=== PATIENT | female | born 1980 | race Caucasian/White ===

== ENCOUNTER 2020-10-29 09:10 | Emergency (ER) | payer OTHER ==
--- OUTSIDE RECORDS SUMMARY | 2020-10-29 09:13 | XMS REPORT | Continuity of Care Document ---
:1980 Author Organization [facility] t Address [address] [place] [place] [address] Care Team Providers Name Role Phone Daniel Salazar DO Attending Clinician David Ramos MD Attending Clinician Problems This patient has no known problems. Allergies, Adverse Reactions, Alerts This patient has no known allergies or adverse reactions. Medications This patient has no known medications. Procedures This patient has no known procedures. Encounters Start End Encounter Admission Attending Care Care Encounter Source Date/Time Date/Time Type Type Clinicians Facility Department ID 2020-08-10 2020-08-10 Patient Martin NHJAMIE [id number] 00:00:00 00:00:00 Outreach [facility] [id number] Daniel [facility] [id number] PAVILLION [id number] [id number] 2019-08-19 2020-02-22 Telemedici Belen Ramos [facility] [id number] 08:00:12 10:23:05 ne Visit David Welsh [id number] [place] [id number] [facility] [phone] nal [address] Building Results This patient has no known results.
[2020-10-29] MEDS ORDERED: MORPHINE 4 MG/ML SYR ONE (09:58)
[2020-10-29 09:59] LABS: Absolute Lymphocytes (CBC) 1.3 K/uL (0.7-4.9); Basophils % 0.8 % (0-1.3); Hematocrit 39.1 % (36.0-45.0); Lymphocytes % 20.9 % (15.3-44.8); MPV 8.4 fL (7.6-11.3); RBC Red Blood Cell Count 4.81 M/uL (3.86-4.86)
[2020-10-29] MEDS ORDERED: ONDANSETRON 4 MG/2 ML VIAL ONE (09:59)
[2020-10-29 10:12] LABS: BUN Blood Urea Nitrogen 16 mg/dL (7-18); Bicarbonate 26 mmol/L (21-32); Glucose Level 180 mg/dL (74-106); Potassium 3.6 mmol/L (3.5-5.1); Sodium Level 137 mmol/L (136-145)
--- NOTE | 2020-10-29 11:02 | RAD REPORT ---
EXAM DESCRIPTION: CT - Head C Spine Chencho Gottlieb - 10/29/2020 10:39 am CLINICAL HISTORY: Head and neck injury with chest and abdominal pain status post fall. Head and neck pain . TECHNIQUE: Computed axial tomography of the head and cervical spine was obtained Computed axial tomography of the chest, abdomen and pelvis was obtained. 100 cc Isovue-300 was given intravenously coronal and sagittal reconstruction was performed. All CT scans are performed using dose optimization technique as appropriate and may include automated exposure control or mA/KV adjustment according to patient size. COMPARISON: None FINDINGS: An intracranial bleed is not seen. The ventricles are normal in caliber. An extra-axial fl uid collection is not noted. Fluid within the sinuses/mastoids is not seen. A cervical fracture is not seen. No dislocation is seen. Loss of the normal lordosis of the cervical spine. Prominent osteophytes C5-6 impinge upon the spinal cord. A mediastinal hematoma is not noted. A pleural effusion is not present. A lung contusion is not seen. The liver, spleen, pancreas, adrenals, kidneys and bladder do not demonstrate atraumatically injury. 3 centimeter left ovarian cyst without significant free fluid IMPRESSION: 1. No acute intracranial abnormality is seen 2. A cervical fracture is not visualized. If the patient continues have symptoms to suggest intracran ial/spinal cord pathology then MRI would be recommended. 3. No traumatic injury involving the chest, abdomen or pelvis is seen.
--- NOTE | 2020-10-29 11:31 | ER ---
Nurse's Notes [facility] Name: Ilda Rivera Age: 40 yrs Sex: Female : 1980 Arrival Date: 10/29/2020 Time: 09:14 Bed 14 Private MD: Diagnosis: Contusion of left back wall of thorax;Fall from ladder;Unspecified injury of head;Strain of muscle, fascia and tendon at neck level Presentation: 10/29 09:16 Chief complaint: Patient states: fall off ladder yesterday, approximately 7-10 ft. Pt aa5 reports falling onto back. Denies LOC. Pt c/o pain to left lower rib cage. 09:16 Coronavirus screen: At this time, the client does not indicate any symptoms associated aa5 with coronavirus-19. Ebola Screen: Patient negative for fever greater than or equal to 101.5 degrees Fahrenheit, and additional compatible Ebola Virus Disease symptoms. Initial Sepsis Screen: Does the patient meet any 2 criteria? No. Patient's initial sepsis screen is negative. Does the patient have a suspected source of infection? No. Patient's initial sepsis screen is negative. Risk Assessment: Do you want to hurt yourself or someone else? Patient reports no desire to harm self or others. Onset of symptoms was October 2020. 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 - Social history:: Smoking status: Patient denies any tobacco usage or history of. Screenin:20 Abuse screen: Denies threats or abuse. Nutritional screening: No deficits noted. aa5 Tuberculosis screening: No symptoms or risk factors identified. Fall Risk None identified. Assessment: 09:16 General: Appears uncomfortable, Behavior is calm, cooperative. Pain: Complains of pain aa5 in left lower rib cage Pain currently is 10 out of 10 on a pain scale. Quality of pain is described as sharp, shooting, Is continuous, Aggravated by increased activity, repositioning. Neuro: Level of Consciousness is awake, alert, obeys commands, Oriented to person, place, time, situation. Cardiovascular: Patient's skin is warm and dry. Respiratory: Airway is patent Respiratory effort is even, unlabored, Respiratory pattern is regular, symmetrical. GI: No signs and/or symptoms were reported involving the gastrointestinal system. : No signs and/or symptoms were reported regarding the genitourinary system. EENT: No signs and/or symptoms were reported regarding the EENT system. Derm: Skin is pink, warm \T\ dry. Musculoskeletal: Range of motion: intact in all extremities. 11:04 Reassessment: Patient appears in no apparent distress at this time. Patient and/or vg1 family updated on plan of care and expected duration. Pain level reassessed. Patient is alert, oriented x 3, equal unlabored respirations, skin warm/dry/pink. Pt requesting pain medication. Pain level 10/10; provider notified. Vital Signs: 09:16 BP 142 / 90; Pulse 86; Resp 16 S; Temp 97.9(TE); Pulse Ox 99% on R/A; Weight 81.65 kg aa5 (R); Height 5 ft. 4 in. (162.56 cm) (R); Pain 10/10; 10:00 BP 130 / 85; Pulse 77; Resp 14; Pulse Ox 98% on R/A; vg1 11:04 BP 114 / 84; Pulse 73; Resp 16; Pulse Ox 97% on R/A; vg1 09:16 Body Mass Index 30.90 (81.65 kg, 162.56 cm) aa5 ED Course: 09:14 Patient arrived in ED. rg4 09:16 Arm band placed on Patient placed in an exam room, on a stretcher. aa5 09:16 Patient has correct armband on for positive identification. Bed in low position. Call aa5 light in reach. Side rails up X 1. 09:17 Chance Macias NP is PHCP. pm1 09:17 Willian Corona MD is Attending Physician. pm1 09:25 Ramya Sullivan RN is Primary Nurse. aa5 09:27 Triage completed. aa5 09:44 Initial lab(s) drawn, by me, sent to lab. Inserted saline lock: 20 gauge in right aa5 forearm, using aseptic technique. Blood collected. 10:00 Report given to BRIGHT Hughes. aa5 10:38 CT Traumagram (Head C Spine CAP W Con) In Process Unspecified. EDMS 11:51 No provider procedures requiring assistance completed. IV discontinued, intact, vg1 bleeding controlled, No redness/swelling at site. Pressure dressing applied. Administered Medications: 09:45 Drug: morphine 4 mg Route: IVP; Site: right forearm; aa5 10:41 Follow up: Response: No adverse reaction; Pain is decreased vg1 09:45 Drug: Zofran (Ondansetron) 4 mg Route: IVP; Site: right forearm; aa5 10:41 Follow up: Response: No adverse reaction vg1 11:26 Drug: Lidoderm 5 % (700 mg/patch) 1 patches Route: Topical; Site: affected area; vg1 11:51 Follow up: Response: No adverse reaction vg1 11:27 Drug: TORadol (ketorolac) 30 mg Route: IVP; Site: right wrist; vg1 11:51 Follow up: Response: No adverse reaction; Pain is decreased vg1 Outcome: 11:31 Discharge ordered by MD. pm1 11:51 Discharged to home ambulatory. vg1 11:51 Condition: stable 11:51 Discharge instructions given to patient, Instructed on discharge instructions, follow up and referral plans. medication usage, Demonstrated understanding of instructions, follow-up care, medications, Prescriptions given X 3. 11:53 Patient left the ED. vg1 Signatures: Dispatcher [employer] EDMS Ramya Sullivan RN RN aa5 Chance Macias, PRODUCT MANAGEMENT MANAGER PRODUCT MANAGEMENT MANAGER pm1 Ciarra Groves rg4 Ellen Groves, RN RN vg1 Corrections: (The following items were deleted from the chart) 11:06 11:04 BP 124 / 79; Pulse 73bpm; Resp 16bpm; Pulse Ox 97% RA; vg1 vg1
--- NOTE | 2020-10-29 11:31 | EDPHYS ---
Physician Documentation [facility] Name: Ilda Rivera Age: 40 yrs Sex: Female : 1980 Arrival Date: 10/29/2020 Time: 09:14 Bed 14 Private MD: ED Physician Willian Corona HPI: 10/29 09:39 This 40 yrs old Female presents to ER via Ambulatory with complaints of Fall pm1 Injury. 09:39 Details of fall: The patient fell from a height, from a ladder, patient does not know pm1 the height of the ladder or her height from the floor. 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 Onset: The symptoms/episode began/occurred yesterday. Associated injuries: The patient sustained injury to the head, pain, left lateral lower posterior chest. Severity of symptoms: in the emergency department the symptoms are unchanged. The patient has not experienced similar symptoms in the past. Patient fell off ladder and landed on her back, primarily the left side. Presenting with pain to left lateral lower posterior chest and back of head. No LOC. 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 - Social history:: Smoking status: Patient denies any tobacco usage or history of. ROS: 09:39 Constitutional: Negative for fever, chills, and weight loss, Eyes: Negative for injury, pm1 pain, redness, and discharge, ENT: Negative for injury, pain, and discharge, Neck: Negative for injury, pain, and swelling, Cardiovascular: Negative for chest pain, palpitations, and edema, Respiratory: Negative for shortness of breath, cough, wheezing, and pleuritic chest pain, Abdomen/GI: Negative for abdominal pain, nausea, vomiting, diarrhea, and constipation, MS/Extremity: Negative for injury and deformity, Skin: Negative for injury, rash, and discoloration. 09:39 Back: Positive for of the left mid back, pain, Negative for decreased range of motion. 09:39 Neuro: Positive for headache, of the right occipital area. Exam: 09:39 Constitutional: This is a well developed, well nourished patient who is awake, alert, pm1 and in no acute distress. 09:39 Chest/axilla: Normal chest wall appearance and motion. Nontender with no deformity. No lesions are appreciated. 09:39 Skin: Warm, dry with normal turgor. Normal color with no rashes, no lesions, and no evidence of cellulitis. 09:39 Head/face: Noted is no obvious of injury or deformity except tenderness, of the right occipital area. 09:39 Eyes: Exam is negative for acute changes, Periorbital structures: appear normal, Extraocular movements: no acute changes. 09:39 ENT: Exam is negative for acute changes, External ear(s): are unremarkable, Ear canal(s): are normal, TM's: are normal. 09:39 Neck: External neck: is normal, tenderness, that is mild, of the left occiput, C-spine: vertebral tenderness, is not appreciated, ROM/movement: is normal. 09:39 Cardiovascular: Exam negative for acute changes, Rate: normal, Rhythm: regular, Pulses: no pulse deficits are appreciated. 09:39 Respiratory: Exam negative for acute changes, respiratory distress, shortness of breath, Breath sounds: are clear throughout. 09:39 Abdomen/GI: Inspection: abdomen appears normal, Palpation: abdomen is soft and non-tender, in all quadrants. 09:39 Back: pain, that is mild, of the left mid back, vertebral tenderness, is not appreciated. 09:39 Neuro: Exam negative for acute changes, Orientation: is normal, Mentation: is normal, Motor: is normal, moves all fours. Vital Signs: 09:16 BP 142 / 90; Pulse 86; Resp 16 S; Temp 97.9(TE); Pulse Ox 99% on R/A; Weight 81.65 kg aa5 (R); Height 5 ft. 4 in. (162.56 cm) (R); Pain 10/10; 10:00 BP 130 / 85; Pulse 77; Resp 14; Pulse Ox 98% on R/A; vg1 11:04 BP 114 / 84; Pulse 73; Resp 16; Pulse Ox 97% on R/A; vg1 09:16 Body Mass Index 30.90 (81.65 kg, 162.56 cm) aa5 MDM: 09:18 Patient medically screened. pm1 11:28 Data reviewed: vital signs. Data interpreted: Pulse oximetry: on room air is 97 %. pm1 Interpretation: normal. Counseling: I had a detailed discussion with the patient and/or guardian regarding: the historical points, exam findings, and any diagnostic results supporting the discharge/admit diagnosis, lab results, radiology results, the need for outpatient follow up, to return to the emergency department if symptoms worsen or persist or if there are any questions or concerns that arise at home. 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 last narcotic prescription 08/10/2020. pm1 10/29 09:33 Order name: Basic Metabolic Panel; Complete Time: 11:16 pm1 10/29 09:33 Order name: CBC with Diff; Complete Time: 11:16 pm1 10/29 09:33 Order name: CT Traumagram (Head C Spine CAP W Con); Complete Time: 11:16 pm1 10/29 09:33 Order name: Labs collected and sent; Complete Time: 09:45 pm1 10/29 09:33 Order name: IV Saline Lock; Complete Time: 09:45 pm1 Administered Medications: 09:45 Drug: morphine 4 mg Route: IVP; Site: right forearm; aa5 10:41 Follow up: Response: No adverse reaction; Pain is decreased vg1 09:45 Drug: Zofran (Ondansetron) 4 mg Route: IVP; Site: right forearm; aa5 10:41 Follow up: Response: No adverse reaction vg1 11:26 Drug: Lidoderm 5 % (700 mg/patch) 1 patches Route: Topical; Site: affected area; vg1 11:51 Follow up: Response: No adverse reaction vg1 11:27 Drug: TORadol (ketorolac) 30 mg Route: IVP; Site: right wrist; vg1 11:51 Follow up: Response: No adverse reaction; Pain is decreased vg1 Disposition: 10/29/20 11:31 Discharged to Home. Impression: Contusion of left back wall of thorax, Fall from ladder, Unspecified injury of head, Strain of muscle, fascia and tendon at neck level. - Condition is Stable. - Discharge Instructions: Contusion, Head Injury, Adult, Fall Prevention in the Home, Muscle Strain. - Prescriptions for Cyclobenzaprine 10 mg Oral Tablet - take 1 tablet by ORAL route every 8 hours As needed; 30 tablet. Diclofenac Sodium 75 mg Oral Tablet Sustained Release - take 1 tablet by ORAL route 2 times per day; 30 tablet. Tylenol- Codeine #3 300-30 mg Oral Tablet - take 2 tablets by ORAL route every 6 hours As needed; 20 tablet. - Medication Reconciliation Form, Thank You Letter, Antibiotic Education, Prescription Opioid Use form. - Follow up: Emergency Department; When: As needed; Reason: Worsening of condition. Follow up: Private Physician; When: 2 - 3 days; Reason: Recheck today's complaints, Continuance of care, Re-evaluation by your physician. - Problem is new. - Symptoms have improved. Addendum: 10/31/2020 07:47 Co-signature as Attending Physician, Willian Corona MD I agree with the assessment and c mcghee plan of care. Signatures: Dispatcher [employer] Willian Kessler MD MD cha Calderon, Audri, RN RN aa5 Chance Macias, SUCTION OPERATOR SUCTION OPERATOR pm1 Ellen Groves RN RN vg1 Corrections: (The following items were deleted from the chart) 10/29 11:53 11:31 10/29/2020 11:31 Discharged to Home. Impression: Contusion of left back wall of vg1 thorax; Fall from ladder; Unspecified injury of head; Strain of muscle, fascia and tendon at neck level. Condition is Stable. Forms are Medication Reconciliation Form, Thank You Letter, Antibiotic Education, Prescription Opioid Use. Follow up: Emergency Department; When: As needed; Reason: Worsening of condition. Follow up: Private Physician; When: 2 - 3 days; Reason: Recheck today's complaints, Continuance of care, Re-evaluation by your physician. Problem is new. Symptoms have improved. pm1
[2020-10-29] MEDS ORDERED: KETOROLAC 30 MG/ML INJ ONE (11:41)
[2020-10-29] MEDS ORDERED: LIDOCAINE 4% PATCH ONE (11:42)
[2020-10-29 12:02] VITALS: TEMP 97.9
[2020-10-29 12:05] VITALS: BP 114/84; O2SAT 97
== END 2020-10-29 11:53 | disposition home or self-care (01) ==
LOC: ER 09:10
DX: S16.1XXA Strain of muscle, fascia and tendon at neck level, initial encounter (principal); S20.222A Contusion of left back wall of thorax, initial encounter; S09.90XA Unspecified injury of head, initial encounter; W11.XXXA Fall on and from ladder, initial encounter; Y93.89 Activity, other specified; I10 Essential (primary) hypertension
CPT/HCPCS: 85025; 80048; 36415; 70450; 72125; 71260; 74177; Q9967; J2405; 99284

== ENCOUNTER 2020-12-28 17:41 | Emergency (ER) | payer OTHER ==
--- OUTSIDE RECORDS SUMMARY | 2020-12-28 17:44 | XMS REPORT | Continuity of Care Document ---
:1980 Author Organization [facility] t Address [address] [place] [address] [place] [address] Care Team Providers Name Role Phone Daniel [...] Clinicians Facility Department ID 2020-08-10 2020-08-10 Patient JANET Salazar [id number] 00:00:00 00:00:00 Outreach [facility] [id number] Daniel [facility] [id number] PAVILLION [id number] [id number] 2019-08-19 2020-02-22 Telemedici Belen Ramos [facility] [id number] 08:00:12 10:23:05 ne Visit David Welsh [id number] [place] [id number] Professio [phone] nal 134 Building Results This patient has no known results.
[2020-12-28 18:37] LABS: Urine Blood Negative (Negative); Urine Glucose Negative (Negative); Urine Protein Negative (Negative); Urine Specific Gravity 1.025 (1.005-1.030)
[2020-12-28 19:05] LABS: Urine Specific Gravity/Preg 1.025 (1.005-1.030)
[2020-12-28 21:42] LABS: Absolute Lymphocytes (CBC) 1.6 K/uL (0.7-4.9); Basophils % 0.8 % (0-1.3); Hematocrit 40.9 % (36.0-45.0); Lymphocytes % 19.4 % (15.3-44.8); MPV 8.3 fL (7.6-11.3); RBC Red Blood Cell Count 4.91 M/uL (3.86-4.86)
[2020-12-28] MEDS ORDERED: ONDANSETRON 4 MG/2 ML VIAL ONE (22:03)
[2020-12-28] MEDS ORDERED: MORPHINE 4 MG/ML SYR ONE (22:03)
[2020-12-28] MEDS ORDERED: NA CHLORIDE 0.9% 1,000 ML ONE (22:03)
[2020-12-28 22:04] LABS: ALT/SGPT 26 U/L (12-78); Albumin 3.5 g/dL (3.4-5.0); Alkaline Phosphatase 92 U/L (45-117); BUN Blood Urea Nitrogen 12 mg/dL (7-18); Bicarbonate 26 mmol/L (21-32); Bilirubin Direct < 0.1 mg/dL (0-0.2); Bilirubin Total 0.3 mg/dL (0.2-1.0); Glucose Level 175 mg/dL (74-106); Lipase 38 U/L (73-393); Protein, Total 7.4 g/dL (6.4-8.2); Sodium Level 137 mmol/L (136-145)
[2020-12-28 22:05] LABS: AST/SGOT 18 U/L (15-37); Potassium 3.5 mmol/L (3.5-5.1)
[2020-12-28 22:10] LABS: Urine Bacteria <20 /HPF (<20); Urine RBC NONE SEEN /HPF (NONE SEEN)
--- NOTE | 2020-12-29 00:01 | EDPHYS ---
Physician Documentation [facility] Name: Ilda Rivera Age: 40 yrs Sex: Female : 1980 Arrival Date: 12/28/2020 Time: 17:44 Bed 14 Private MD: ED Physician Jon Quinones HPI: 12/28 21:15 This 40 yrs old Female presents to ER via Ambulatory with complaints of cp Abdominal Pain. 21:15 The patient presents with abdominal pain right lower quadrant. Onset: The cp symptoms/episode began/occurred 1 week(s) ago. The symptoms radiate to right back. Associated signs and symptoms: Pertinent positives: dysuria, Pertinent negatives: constipation, diarrhea, fever, vaginal discharge, vomiting, vaginal bleeding. The symptoms are described as constant. Modifying factors: the symptoms are aggravated by pressure, walking. Severity of pain: in the emergency department the pain is actually worse moderately. 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 - Social history:: Smoking status: Patient/guardian denies using tobacco, the patient reports quitting approximately 8 years ago. ROS: 21:20 Constitutional: Negative for chills, fever, poor PO intake. cp 21:20 Eyes: Negative for injury, pain, redness, and discharge. cp 21:20 ENT: Negative for ear pain, sore throat, difficulty swallowing, difficulty handling secretions. 21:20 Cardiovascular: Negative for chest pain, palpitations. 21:20 Respiratory: Negative for cough, shortness of breath, wheezing. 21:20 Abdomen/GI: Positive for abdominal pain, of the right lower quadrant, Negative for vomiting, diarrhea, constipation, black/tarry stool, rectal bleeding. 21:20 Back: Positive for radiated pain, of the right low back. 21:20 : Positive for pain with urination, Negative for vaginal bleeding, vaginal discharge. 21:20 Neuro: Negative for altered mental status, headache, weakness. 21:20 All other systems are negative. Exam: 21:25 Constitutional: The patient appears in no acute distress, alert, awake, non-toxic, well cp developed, well nourished. 21:25 Head/Face: Normocephalic, atraumatic. cp 21:25 Eyes: Periorbital structures: appear normal, Conjunctiva: normal, no exudate, no injection, Sclera: no appreciated abnormality, Lids and lashes: appear normal, bilaterally. 21:25 ENT: External ear(s): are unremarkable, Nose: is normal, Mouth: Lips: moist, Oral mucosa: moist, Posterior pharynx: Airway: no evidence of obstruction, patent. 21:25 Chest/axilla: Inspection: normal, Palpation: is normal, no crepitus, no tenderness. 21:25 Cardiovascular: Rate: normal, Rhythm: regular. 21:25 Respiratory: the patient does not display signs of respiratory distress, Respirations: normal, no use of accessory muscles, no retractions, labored breathing, is not present, Breath sounds: are clear throughout, no decreased breath sounds, no stridor, no wheezing. 21:25 Abdomen/GI: Inspection: distension, that is mild, in the abdomen diffusely, Bowel sounds: active, all quadrants, Palpation: soft, in all quadrants, moderate abdominal tenderness, in the right lower quadrant, rebound tenderness, is not appreciated, involuntary guarding, is not appreciated. 21:25 Back: pain, that is moderate, of the right low back, CVA tenderness, is absent. 21:25 Neuro: Orientation: to person, place \T\ time. Mentation: is normal, Motor: moves all fours, strength is normal. 23:59 : Pelvic Exam: The exam is refused by the patient/guardian. The risks and cp consequences are understood by the patient, Sexual behavior: the patient is sexually active, and reports a single partner. Vital Signs: 17:53 BP 141 / 87; Pulse 85; Resp 16 S; Temp 97.7(TE); Pulse Ox 100% on R/A; Weight 81.65 kg ca1 (R); Height 5 ft. 4 in. (162.56 cm) (R); Pain 10/10; 21:50 BP 163 / 96; Pulse 81; Resp 18 S; Pulse Ox 99% on R/A; aa5 08/06 00:15 BP 130 / 86; Pulse 78; Resp 16 S; Temp 98(O); Pulse Ox 100% on R/A; 12/28 17:53 Body Mass Index 30.90 (81.65 kg, 162.56 cm) ca1 MDM: 12/28 21:01 Patient medically screened. cp 22:00 Differential diagnosis: appendicitis, Pyelonephritis, Ureterolithiasis, urinary tract cp infection, PID, ovarian cyst, ovarian abscess. 23:59 Data reviewed: vital signs, nurses notes, lab test result(s), radiologic studies, CT cp scan, ultrasound, and as a result, I will discharge patient. Response to treatment: the patient's symptoms have markedly improved after treatment, and as a result, I will discharge patient. 12/28 18:37 Order name: Urine Dipstick-Ancillary; Complete Time: 21:16 EDMS 12/28 18:39 Order name: Urine --Ancillary (enter results) nc 12/28 18:40 Order name: Urine --Ancillary; Complete Time: 21:16 EDMD 12/28 21:16 Interpretation: Reviewed. 12/28 21:03 Order name: Basic Metabolic Panel 12/28 21:03 Order name: CBC with Diff; Complete Time: 22:34 12/28 23:36 Interpretation: Normal except: RBC 4.91. 12/28 21:03 Order name: Hepatic Function; Complete Time: 22:34 cp 12/28 21:03 Order name: Lipase; Complete Time: 22:34 12/28 21:04 Order name: Basic Metabolic Panel; Complete Time: 22:34 EDMD 12/28 21:16 Order name: Urine Microscopic Only; Complete Time: 22:34 12/28 23:36 Interpretation: Normal except: SQEPI 10-20. 12/28 21:16 Order name: CT Abd/Pelvis - IV Contrast Only 12/28 22:36 Order name: US Transvaginal Study (Probe) 12/28 21:03 Order name: IV Saline Lock; Complete Time: 21:42 12/28 21:03 Order name: Labs collected and sent; Complete Time: 21:27 cp Administered Medications: 21:40 Drug: Zofran (Ondansetron) 4 mg Route: IVP; Site: left antecubital; aa5 12/29 00:15 Follow up: Response: No adverse reaction 12/28 21:40 Drug: NS 0.9% 1000 ml Route: IV; Rate: 1 bolus; Site: left antecubital; aa5 12/29 00:14 Follow up: IV Status: Order to discontinue infusion; IV Intake: 300ml 12/28 21:40 Drug: morphine 4 mg Route: IVP; Site: left antecubital; aa5 12/29 00:14 Follow up: Response: No adverse reaction; RASS: Alert and Calm (0) bb Disposition: 02:59 Co-signature as Attending Physician, Jon Quinones MD. 7 Disposition Summary: 12/29/20 00:00 Discharge Ordered Location: Home cp Problem: new cp Symptoms: have improved cp Condition: Stable cp Diagnosis - Lower abdominal pain, unspecified cp - Other ovarian cysts - left cp Followup: cp - With: Private Physician - When: 1 - 2 days - Reason: Recheck today's complaints Discharge Instructions: - Discharge Summary Sheet cp - Abdominal Pain, Adult cp - Ovarian Cyst cp Forms: - Medication Reconciliation Form cp - Thank You Letter cp - Antibiotic Education cp - Prescription Opioid Use cp Prescriptions: - Ibuprofen 800 mg Oral Tablet - take 1 tablet by ORAL route every 8 hours As needed take with food; 30 tablet; cp Refills: 0, Product Selection Permitted Signatures: Dispatcher [employer] Ramya Bolanos RN RN aa5 Willian Ingram PA PA cp Jil De Los Santos RN RN Jon Ordaz MD MD 7 Thelma Azevedo RN bb
--- NOTE | 2020-12-29 00:01 | ER ---
Nurse's Notes [facility] Name: Ilda Rivera Age: 40 yrs Sex: Female : 1980 Arrival Date: 12/28/2020 Time: 17:44 Bed 14 Private MD: Diagnosis: Lower abdominal pain, unspecified;Other ovarian cysts-left Presentation: 12/28 17:53 Chief complaint: Patient states: RLQ pain x 1 week, abdominal distention. It also hurts ca1 to urinate. There is also a chance I could be since I haven't had a period in 2 months and I have not done a UPT. Coronavirus screen: Client denies travel out of the [place] in the last 14 days. At this time, the client does not indicate any symptoms associated with coronavirus-19. Ebola Screen: Patient negative for fever greater than or equal to 101.5 degrees Fahrenheit, and additional compatible Ebola Virus Disease symptoms Patient denies exposure to infectious person. Patient denies travel to an Ebola-affected area in the 21 days before illness onset. No symptoms or risks identified at this time. Initial Sepsis Screen: Does the patient meet any 2 criteria? No. Patient's initial sepsis screen is negative. Does the patient have a suspected source of infection? No. Patient's initial sepsis screen is negative. Risk Assessment: Do you want to hurt yourself or someone else? Patient reports no desire to harm self or others. Onset of symptoms was December 28, 2020. 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 - Social history:: Smoking status: Patient/guardian denies using tobacco, the patient reports quitting approximately 8 years ago. Screenin:55 Abuse screen: Denies threats or abuse. Nutritional screening: No deficits noted. aa5 Tuberculosis screening: No symptoms or risk factors identified. Fall Risk None identified. Assessment: 20:55 General: Appears comfortable, Behavior is calm, cooperative. Pain: Complains of pain in aa5 right lower quadrant Pain currently is 10 out of 10 on a pain scale. Quality of pain is described as sharp, shooting, Is continuous. Neuro: Level of Consciousness is awake, alert, obeys commands, Oriented to person, place, time, situation. Cardiovascular: Heart tones S1 S2 present Rhythm is regular. Respiratory: Airway is patent Respiratory effort is even, unlabored, Respiratory pattern is regular, symmetrical. GI: Abdomen is round Bowel sounds present X 4 quads. Abdomen is tender to palpation in right lower quadrant Reports nausea, Patient currently denies diarrhea, vomiting. : Reports burning with urination. EENT: No signs and/or symptoms were reported regarding the EENT system. Derm: Skin is pink, warm \T\ dry. Musculoskeletal: Range of motion: intact in all extremities. 21:40 Reassessment: Patient is alert, oriented x 3, equal unlabored respirations, skin aa5 warm/dry/pink. 22:42 Reassessment: Patient is alert, oriented x 3, equal unlabored respirations, skin aa5 warm/dry/pink. Patient states feeling better. Reassessment: Back from CT scan, pt notified of wait time. . Pain: Pain currently is 8 out of 10 on a pain scale. GI: Patient currently denies nausea. 12/29 00:12 Reassessment: Patient is alert, oriented x 3, equal unlabored respirations, skin bb warm/dry/pink. pt verbalized understanding of and agrees to plan of care discharge instructions given pt ambulated with steady gait to exit. Vital Signs: 12/28 17:53 BP 141 / 87; Pulse 85; Resp 16 S; Temp 97.7(TE); Pulse Ox 100% on R/A; Weight 81.65 kg ca1 (R); Height 5 ft. 4 in. (162.56 cm) (R); Pain 10/10; 21:50 BP 163 / 96; Pulse 81; Resp 18 S; Pulse Ox 99% on R/A; aa5 12/29 00:15 BP 130 / 86; Pulse 78; Resp 16 S; Temp 98(O); Pulse Ox 100% on R/A; bb 12/28 17:53 Body Mass Index 30.90 (81.65 kg, 162.56 cm) ca1 ED Course: 12/28 17:44 Patient arrived in ED. mr 17:56 Triage completed. ca1 17:56 Arm band placed on right wrist. ca1 20:55 Willian Ingram PA is PHCP. cp 20:55 Jon Quinones MD is Attending Physician. cp 20:55 Patient has correct armband on for positive identification. Placed in gown. Bed in low aa5 position. Call light in reach. Side rails up X2. Pulse ox on. NIBP on. 21:40 Initial lab(s) drawn, by me, sent to lab. Inserted saline lock: 20 gauge in left aa5 antecubital area, using aseptic technique. Blood collected. 21:42 Ramya Sullivan, RN is Primary Nurse. aa5 22:26 CT Abd/Pelvis - IV Contrast Only In Process Unspecified. EDNJ 23:11 US Transvaginal Study (Probe) In Process Unspecified. EDNJ 12/29 00:13 No provider procedures requiring assistance completed. IV discontinued, intact, bb bleeding controlled, No redness/swelling at site. Pressure dressing applied. Administered Medications: 12/28 21:40 Drug: Zofran (Ondansetron) 4 mg Route: IVP; Site: left antecubital; aa 12/29 00:15 Follow up: Response: No adverse reaction 12/28 21:40 Drug: NS 0.9% 1000 ml Route: IV; Rate: 1 bolus; Site: left antecubital; aa5 12/29 00:14 Follow up: IV Status: Order to discontinue infusion; IV Intake: 300ml 12/28 21:40 Drug: morphine 4 mg Route: IVP; Site: left antecubital; aa5 12/29 00:14 Follow up: Response: No adverse reaction; RASS: Alert and Calm (0) bb Intake: 00:14 IV: 300ml; Total: 300ml. bb Outcome: 00:00 Discharge ordered by . cp 00:14 Discharged to home ambulatory. bb 00:14 Condition: stable 00:14 Discharge instructions given to patient, Instructed on discharge instructions, follow up and referral plans. medication usage, Demonstrated understanding of instructions, follow-up care, medications, Prescriptions given X 1. 00:15 Patient left the ED. bb Signatures: Dis[facility] Jo Pritchard Thelma Azevedo RN RN bb Ramya Sullivan, RN RN aa5 Willian Ingram, PA PA cp Acnnamdi, Jil, RN RN ca1
[2020-12-29 00:57] VITALS: TEMP 97.7
[2020-12-29 01:05] VITALS: BP 163/96; O2SAT 99
--- NOTE | 2020-12-29 08:53 | RAD REPORT ---
EXAM DESCRIPTION: US - Transvaginal Study Probe - 12/28/2020 11:11 pm CLINICAL HISTORY: ICD N92.5 heavy menses COMPARISON: none FINDINGS: The uterus measures 10 x 8 x 6 centimeters. The endometrial stripe is within normal limits . Right ovary is normal in size and echotexture. Left ovary normal in size and echotexture. It contains a 2 centimeters cyst. The right and left adnexa unremarkable No significant free fluid is seen. IMPRESSION: 2 centimeter left ovarian cyst without significant free fluid
--- NOTE | 2020-12-29 12:42 | RAD REPORT ---
EXAM DESCRIPTION: CT - Abdomen Pelvis W Contrast - 12/29/2020 6:34 am CLINICAL HISTORY: The patient is 40 years old and is Female; lower abdomen pain TECHNIQUE: Axial computed tomography images of the abdomen and pelvis with intravenous contrast. S agittal and coronal reformatted images were created and reviewed. This CT exam was performed using one or more of the following dose reduction techniques: automated exposure control, adjustment of t he mA and/or kV according to patient size, and/or use of iterative reconstruction technique. DLP: 1699 mGy*cm COMPARISON: CT abdomen and pelvis dated 08/14/2020. FINDINGS: LUNG BASES: Lung bases are clear. HEART: Visualized heart is normal. ABDOMEN: LIVER: Hepatic steatosis. GALLBLADDER AND BILE DUCTS: Prior cholecystectomy. Biliary ductal dilatation. PANCREAS: Unremarkable. No mass. No ductal dilation. SPLEEN: Unremarkable. No splenomegaly. ADRENALS: Unremarkable. No mass. KIDNEYS AND URETERS: Unremarkable. No solid mass. No hydronephrosis. STOMACH AND BOWEL: Moderate stool burden. No obstruction. No mucosal thickening. PELVIS: APPENDIX: The appendix is seen and is within normal limits. BLADDER: Unremarkable. No mass. REPRODUCTIVE: Left ovarian cyst measuring 2.4 cm. ABDOMEN and PELVIS: INTRAPERITONEAL SPACE: Unremarkable. No free air. No significant fluid collection. BONES/JOINTS: No acute fracture. No dislocation. SOFT TISSUES: Fat-containing umbilical hernia. VASCULATURE: Trace vascular calcifications. No abdominal aortic aneurysm. LYMPH NODES: Unremarkable. No enlarged lymph nodes. IMPRESSION: 1. No acute abdominal pelvic abnormality. 2. Moderate stool burden. Correlate for constipation 3. Hepatic steatosis. 4. Left ovarian cyst measuring 2.4 cm. No follow-up imaging is recommended. Reference: US recommendations based on Radiology 2010 Jan;256(3):943-54; CT/MR recommendations based on J Am Natalie Radiol 2013;10:675-681. Electronically signed by: Tai Kwan DO 12/28/2020 10:50 PM CDT Due to temporary technical issues with the PACS/Fluency reporting system, reports are being signed by the in house radiologist without review as a courtesy to ensure prompt reporting. The interpreting r adiologist is fully responsible for the content of the report.
== END 2020-12-29 00:15 | disposition home or self-care (01) ==
LOC: ER 17:41
DX: N83.292 Other ovarian cyst, left side (principal); I10 Essential (primary) hypertension
CPT/HCPCS: 96361; 85025; 80048; 36415; 81025; 80076; 83690; 74177; 76830; 96375; 96374; 99284; Q9967; J7030; J2405; 81003; 81015